=== PATIENT | female | born 1975 | race Two or more races ===

== ENCOUNTER 2023-07-20 09:08 | Emergency (ER) | payer OTHER ==
[~2023-07-20] VITALS: Ht 157.5 cm; Wt 86.2 kg
== END 2023-07-20 16:31 | disposition home or self-care (01) ==
LOC: ER 09:08
PROVIDERS: Emergency Medicine
DX: R10.2 Pelvic and perineal pain (principal); R10.30 Lower abdominal pain, unspecified; Z88.0 Allergy status to penicillin; N83.202 Unspecified ovarian cyst, left side; N83.201 Unspecified ovarian cyst, right side

== ENCOUNTER 2023-12-13 15:29 | Emergency (ER) | payer OTHER ==
[~2023-12-13] VITALS: Ht 162.6 cm; Wt 78.0 kg
[2023-12-13 18:20] LABS: HEMATOCRIT 39.6 % (36.0-45.00); HEMOGLOBIN 13.7 g/dL (12.0-15.00); MEAN CELL VOLUME 87.3 fL (80.00-100.00); MEAN CORPUSCULAR HEMOGLOBIN 30.2 pg (27.00-32.0); MEAN CORPUSCULAR HGB CONC 34.6 g/dl (32.0-36.0); PLATELET COUNT 174 K/uL (150-450); RED BLOOD COUNT 4.54 M/uL (4.00-6.00); RED CELL DISTRIBUTION WIDTH 12.3 % (11.5-14.5)
== END 2023-12-13 19:31 | disposition home or self-care (01) ==
LOC: ER 15:29
PROVIDERS: Nurse Practitioner Family
DX: B34.9 Viral infection, unspecified (principal); Z20.822 Contact with and (suspected) exposure to COVID-19; Z88.0 Allergy status to penicillin